=== PATIENT | male | born 1955 | race African-American/Black ===

== ENCOUNTER 2021-01-01 06:53 | Emergency (ER) | payer OTHER ==
[~2021-01-01] VITALS: Ht 175.3 cm; Wt 68.2 kg
[2021-01-01 07:44] VITALS: BP 156/98
[2021-01-01] MEDS ORDERED: PANTOPRAZOLE 40MG DR TABLET PO ONE (08:15)
[2021-01-01] MEDS ORDERED: ONDANSETRON 4MG ODT PO ONE (08:15)
== END 2021-01-01 10:55 | disposition home or self-care (01) ==
LOC: ER 07:17
DX: K21.9 Gastro-esophageal reflux disease without esophagitis (principal); R91.8 Other nonspecific abnormal finding of lung field
CPT/HCPCS: 71045; 71250; 99284; Q0162

== ENCOUNTER 2021-01-20 16:08 | Inpatient (IN) | payer OTHER ==
[~2021-01-20] VITALS: Ht 167.6 cm; Wt 61.9 kg
[2021-01-20] MEDS ORDERED: SODIUM CHLORIDE 0.9% 1,000 ML IV ONE (16:45)
[2021-01-20 16:49] LABS: BASOPHILS % 0.7 % (0.0-2.0); EOSINOPHILS % 2.1 % (0.0-5.0); HEMOGLOBIN. 10.2 g/dL (14.0-18.0); LYMPHOCYTES % 18.1 % (20.0-50.0); MEAN CORPUSCULAR HEMOGLOBIN 27.1 pg (28.0-32.0); MEAN CORPUSCULAR VOLUME 82.3 fL (80.0-94.0); MONOCYTES % 7.7 % (2.0-8.0); NEUTROPHILS % 71.4 % (40.0-76.0); PLATELET 438 x1000/uL (130-400); RED BLOOD CELL COUNT 3.76 mill/uL (4.7-6.1); RED CELL DISTRIBUTION WIDTH 15.3 % (11.6-14.6)
[2021-01-20 17:00] LABS: INR 1.1; PROTHROMBIN TIME 12.1 sec (9.6-11.0)
[2021-01-20 17:02] LABS: CHLORIDE 106 mEq/L (98-107)
[2021-01-20] MEDS ORDERED: PANTOPRAZOLE SODIUM 40 MG/VIAL IV ONE (18:30)
[2021-01-20 19:50] LABS: CLARITY URINE CLEAR (CLEAR); COLOR URINE YELLOW (YELLOW); KETONES URINE NEGATIVE (NEGATIVE); LEUKOCYTE ESTERASE URINE TRACE (NEGATIVE); NITRITE URINE NEGATIVE (NEGATIVE); OCCULT BLOOD URINE 1+ (NEGATIVE); PH URINE 6.5 (4.5-8.0); PROTEIN URINE NEGATIVE (NEGATIVE); SPECIFIC GRAVITY URINE 1.016 (1.005-1.030)
[2021-01-20 21:25] VITALS: BP 150/95
[2021-01-20 22:00] VITALS: BP 150/95
[2021-01-20] MEDS ORDERED: ACETAMINOPHEN 325MG TABLET PO PRN (23:00)
[2021-01-21] VITALS: BP_SYST 132; BP_SYST 134; BP_DIAS 84
[2021-01-21 04:00] VITALS: BP 142/83
[2021-01-21 07:08] LABS: BASOPHILS % 0.8 % (0.0-2.0); HEMOGLOBIN. 10.1 g/dL (14.0-18.0); MEAN CORPUSCULAR HEMOGLOBIN 26.8 pg (28.0-32.0); MEAN CORPUSCULAR VOLUME 81.8 fL (80.0-94.0); MONOCYTES % 9.7 % (2.0-8.0); NEUTROPHILS % 66.5 % (40.0-76.0); PLATELET 421 x1000/uL (130-400); RED BLOOD CELL COUNT 3.78 mill/uL (4.7-6.1); RED CELL DISTRIBUTION WIDTH 14.8 % (11.6-14.6)
[2021-01-21 07:30] LABS: CHLORIDE 104 mEq/L (98-107)
[2021-01-21 08:00] VITALS: BP 139/89
[2021-01-21] MEDS: PANTOPRAZOLE SODIUM 40 MG/VIAL IV SCH (09:45)
[2021-01-21] MEDS ORDERED: DEXAMETHASONE 4MG/ML 1ML VIAL IV SCH ×2 (10:30→11:30)
[2021-01-21 12:00] VITALS: BP 149/90
[2021-01-21 16:00] VITALS: BP 143/90
[2021-01-21] MEDS: DEXAMETHASONE 4MG/ML 1ML VIAL IV SCH (16:30)
[2021-01-21 20:00] VITALS: BP 158/100
[2021-01-21] MEDS ORDERED: ONDANSETRON HCL 4MG/2ML INJ IV PRN (23:30)
[2021-01-21] MEDS ORDERED: MORPHINE SULFATE 2 MG/ML CPJ (NOT FOR IM USE) IV PRN (23:30)
[2021-01-22] VITALS: BP 139/84
[2021-01-22] MEDS: DEXAMETHASONE 4MG/ML 1ML VIAL IV SCH ×5 (00:21→22:19)
[2021-01-22 04:00] VITALS: BP 141/77
[2021-01-22 08:30] VITALS: BP 124/87
[2021-01-22] MEDS: PANTOPRAZOLE SODIUM 40 MG/VIAL IV SCH (08:55)
[2021-01-22] MEDS ORDERED: OMEP20TA2 PO (10:33)
[2021-01-22 11:14] LABS: HEMATOCRIT. 33.6 % (42.0-52.0); MEAN CORPUSCULAR HEMOGLOBIN 26.8 pg (28.0-32.0); MEAN CORPUSCULAR VOLUME 81.8 fL (80.0-94.0); PLATELET 457 x1000/uL (130-400); RED BLOOD CELL COUNT 4.11 mill/uL (4.7-6.1); RED CELL DISTRIBUTION WIDTH 15.3 % (11.6-14.6)
[2021-01-22 11:33] LABS: CHLORIDE 104 mEq/L (98-107)
[2021-01-22 11:41] LABS: PLATELET ESTIMATE SLIGHTLY INCREASED
[2021-01-22 12:00] VITALS: BP 139/91
[2021-01-22] MEDS ORDERED: HYDRALAZINE 20MG/ML VIAL IV PRN (14:00)
[2021-01-22] MEDS ORDERED: BISACODYL 10MG SUPP PR PRN (14:15)
[2021-01-22] MEDS ORDERED: IPRATROPIUM/ALBUTEROL 0.5-3(2.5)MG/3ML NEB HHN PRN (14:15)
[2021-01-22] MEDS ORDERED: CEFTRIAXONE 1 G PREMIX 50 ML IV SCH (14:15)
[2021-01-22] MEDS ORDERED: IOHEXOL-300 100 ML BOTTLE ONE (15:20)
[2021-01-22 16:00] VITALS: BP 138/88
[2021-01-22] MEDS: CEFTRIAXONE 1,000 MG in DEXTROSE 5% WATER 50 ML IV SCH (16:43)
[2021-01-22] MEDS ORDERED: DEXAMETHASONE 4MG/ML 1ML VIAL IV SCH (17:00)
[2021-01-22 17:23] LABS: CREATINE KINASE 75 IU/L (39-308)
[2021-01-22 17:24] LABS: CREATINE KINASE MB FRACTION < 1.0 ng/mL (0.5-3.6)
[2021-01-22 20:00] VITALS: BP 123/70
[2021-01-22] MEDS: LEVETIRACETAM 500MG PREMIX 100 ML IV SCH (22:17)
[2021-01-23] VITALS: BP 129/78
[2021-01-23] MEDS: IPRATROPIUM/ALBUTEROL 0.5-3(2.5)MG/3ML NEB HHN SCH ×3 (01:00→07:44)
[2021-01-23] MEDS: DEXT 5%/0.45% NACL 1000ML 1,000 ML IV SCH ×2 (02:08→15:59)
[2021-01-23 04:00] VITALS: BP 140/77
[2021-01-23] MEDS: DEXAMETHASONE 4MG/ML 1ML VIAL IV SCH ×3 (06:07→17:44)
[2021-01-23 07:21] LABS: CHLORIDE 104 mEq/L (98-107)
[2021-01-23] MEDS ORDERED: ONDANSETRON HCL 4MG/2ML INJ ONE ×2 (07:32→07:33)
[2021-01-23 07:37] LABS: BASOPHILS % 0.2 % (0.0-2.0); HEMATOCRIT. 30.2 % (42.0-52.0); HEMOGLOBIN. 9.9 g/dL (14.0-18.0); LYMPHOCYTES % 7.8 % (20.0-50.0); MEAN CORPUSCULAR HEMOGLOBIN 26.7 pg (28.0-32.0); MEAN CORPUSCULAR VOLUME 81.4 fL (80.0-94.0); MEAN PLATELET VOLUME 7.4 fl (7.4-10.4); MONOCYTES % 3.9 % (2.0-8.0); NEUTROPHILS % 88.1 % (40.0-76.0); PLATELET 430 x1000/uL (130-400); RED BLOOD CELL COUNT 3.71 mill/uL (4.7-6.1); RED CELL DISTRIBUTION WIDTH 14.9 % (11.6-14.6)
[2021-01-23 08:00] VITALS: BP 129/78
[2021-01-23] MEDS: LEVETIRACETAM 500MG PREMIX 100 ML IV SCH (09:30)
[2021-01-23] MEDS: PANTOPRAZOLE SODIUM 40 MG/VIAL IV SCH (09:30)
[2021-01-23] MEDS ORDERED: LIDOCAINE HCL 1% 20ML VIAL (Pyxis) INJ ONE (11:18)
[2021-01-23] MEDS ORDERED: SODIUM BICARBONATE 4% (2.4MEQ) 5ML VIAL IV ONE (11:18)
[2021-01-23 12:00] VITALS: BP 140/85
[2021-01-23] MEDS ORDERED: IPRA3AMP9 NEB (14:49)
[2021-01-23] MEDS ORDERED: DEXA2TAB PO (14:49)
[2021-01-23] MEDS ORDERED: KEPP500 MT (14:49)
[2021-01-23] MEDS: CEFTRIAXONE 1,000 MG in DEXTROSE 5% WATER 50 ML IV SCH (15:58)
[2021-01-23 16:00] VITALS: BP 121/74
[2021-01-23 18:09] VITALS: BP 121/74
[2021-01-23] MEDS ORDERED: FAMOTIDINE 20MG TABLET PO SCH (21:00)
== END 2021-01-23 19:06 | disposition home or self-care (01) | DRG 40 ==
LOC: ER 16:20 → 6WST 18:38 → ENRESERV 20:32
PROVIDERS: ADMIT Internal Medicine; ATTEND Internal Medicine
PROC: 07B13ZX Excision of Right Neck Lymphatic, Percutaneous Approach, Diagnostic (ICD-10-PCS; principal; 2021-01-23)
DX: C79.31 Secondary malignant neoplasm of brain (principal); G93.5 Compression of brain; C34.90 Malignant neoplasm of unspecified part of unspecified bronchus or lung; N39.0 Urinary tract infection, site not specified; R04.2 Hemoptysis; C79.72 Secondary malignant neoplasm of left adrenal gland; G90.8 Other disorders of autonomic nervous system; D64.9 Anemia, unspecified; K21.9 Gastro-esophageal reflux disease without esophagitis; Z79.899 Other long term (current) drug therapy; Z20.828 Contact with and (suspected) exposure to other viral communicable diseases
CPT/HCPCS: 36415; 38505; 71045; 71260; 74176; 76942; 80048; 80053; 81003; 82550; 82553; 82962; 84484; 85025; 86850; 86900; 87426; 88305; 93005; 93306; 93970; 94640; 97162; 99291; C9113; J0696; J1100; J1953; J2405; J3490; J7030; J7060; Q9967

== ENCOUNTER 2021-01-30 04:09 | Inpatient (IN) | payer OTHER ==
[2021-01-30] VITALS (56 sets, daily range): BP systolic 99–162; BP diastolic 23–100
[~2021-01-30] VITALS: Ht 172.7 cm; Wt 57.2 kg
[~2021-01-30 04:09] MED LIST: DEXA2TAB PO; IPRA3AMP9 NEB; KEPP500 MT; OMEP20TA2 PO
[2021-01-30] MEDS ORDERED: LEVETIRACETAM 500MG PREMIX 100 ML IV ONE (04:45)
[2021-01-30 04:56] LABS: BASOPHILS % 0.6 % (0.0-2.0); EOSINOPHILS % 1.6 % (0.0-5.0); HEMOGLOBIN. 10.9 g/dL (14.0-18.0); LYMPHOCYTES % 16.6 % (20.0-50.0); MEAN CORPUSCULAR HEMOGLOBIN 28.1 pg (28.0-32.0); MEAN CORPUSCULAR VOLUME 84.7 fL (80.0-94.0); MEAN PLATELET VOLUME 7.3 fl (7.4-10.4); MONOCYTES % 9.1 % (2.0-8.0); NEUTROPHILS % 72.1 % (40.0-76.0); PLATELET 393 x1000/uL (130-400); RED BLOOD CELL COUNT 3.89 mill/uL (4.7-6.1); RED CELL DISTRIBUTION WIDTH 15.2 % (11.6-14.6)
[2021-01-30] MEDS ORDERED: LABETALOL 5MG/ML SYR 20 MG/4 ML SYRINGE IV ONE (05:00)
[2021-01-30] MEDS ORDERED: DEXAMETHASONE 10 MG/ML VIAL IV ONE (05:00)
[2021-01-30] MEDS ORDERED: IOHEXOL-350 100 ML BOTTLE ONE (05:02)
[2021-01-30 05:03] LABS: CHLORIDE 103 mEq/L (98-107)
[2021-01-30 05:06] LABS: ETHANOL BLOOD < 10 mg/dL
[2021-01-30 05:09] LABS: LDL CHOLESTEROL 118 mg/dL (5-100)
[2021-01-30 05:13] LABS: INR 1.1; PROTHROMBIN TIME 11.4 sec (9.6-11.0)
[2021-01-30 07:11] LABS: CLARITY URINE CLEAR (CLEAR); COLOR URINE YELLOW (YELLOW); KETONES URINE NEGATIVE (NEGATIVE); LEUKOCYTE ESTERASE URINE NEGATIVE (NEGATIVE); NITRITE URINE NEGATIVE (NEGATIVE); OCCULT BLOOD URINE 1+ (NEGATIVE); PROTEIN URINE NEGATIVE (NEGATIVE); SPECIFIC GRAVITY URINE 1.054 (1.005-1.030)
[2021-01-30] MEDS ORDERED: NICARDIPINE 100 MG in SODIUM CHLORIDE 0.9% 60 ML IV PRN ×2 (07:15→11:00)
[2021-01-30] MEDS: DEXT 5%/LACTATED RINGERS 1,000 ML IV SCH ×2 (07:15→23:43)
[2021-01-30 07:29] LABS: *AMPHETAMINES SCREEN URINE NEGATIVE (NEGATIVE); *BARBITURATES SCREEN URINE NEGATIVE (NEGATIVE)
[2021-01-30 07:30] LABS: *BENZODIAZEPINES SCREEN URINE NEGATIVE (NEGATIVE); *COCAINE SCREEN URINE NEGATIVE (NEGATIVE); CANNABINOID URINE SCREEN NEGATIVE (NEGATIVE); METHADONE URINE SCREEN NEGATIVE (NEGATIVE); OPIATES URINE SCREEN PRESUMTIVE POSITIVE (NEGATIVE); PHENCYCLIDINE URINE SCREEN NEGATIVE (NEGATIVE)
[2021-01-30] MEDS: DEXAMETHASONE 4MG/ML 1ML VIAL IV SCH ×3 (12:11→23:43)
[2021-01-30] MEDS ORDERED: BISACODYL 10MG SUPP PR PRN (13:45)
[2021-01-30] MEDS ORDERED: IPRATROPIUM/ALBUTEROL 0.5-3(2.5)MG/3ML NEB HHN PRN (13:45)
[2021-01-30] MEDS ORDERED: MORPHINE SULFATE 2 MG/ML CPJ (NOT FOR IM USE) IV PRN (13:45)
[2021-01-30] MEDS ORDERED: HYDRALAZINE 20MG/ML VIAL IV PRN (13:45)
[2021-01-30] MEDS: FAMOTIDINE 20MG/2ML VIAL IV SCH (15:02)
[2021-01-30] MEDS ORDERED: LEVETIRACETAM 500MG PREMIX 100 ML IV SCH (21:00)
[2021-01-30] MEDS: LEVETIRACETAM 500MG PREMIX 100 ML IV SCH (21:26)
[2021-01-31] VITALS (45 sets, daily range): BP systolic 102–146; BP diastolic 52–94
[2021-01-31 05:06] LABS: BASOPHILS % 0.1 % (0.0-2.0); HEMATOCRIT. 29.5 % (42.0-52.0); HEMOGLOBIN. 9.9 g/dL (14.0-18.0); LYMPHOCYTES % 11.8 % (20.0-50.0); MEAN CORPUSCULAR HEMOGLOBIN 28.8 pg (28.0-32.0); MEAN CORPUSCULAR VOLUME 85.6 fL (80.0-94.0); MEAN PLATELET VOLUME 7.3 fl (7.4-10.4); MONOCYTES % 2.6 % (2.0-8.0); NEUTROPHILS % 85.5 % (40.0-76.0); PLATELET 380 x1000/uL (130-400); RED BLOOD CELL COUNT 3.44 mill/uL (4.7-6.1); RED CELL DISTRIBUTION WIDTH 15.3 % (11.6-14.6)
[2021-01-31] MEDS: DEXAMETHASONE 4MG/ML 1ML VIAL IV SCH ×3 (05:11→19:08)
[2021-01-31 05:35] LABS: CHLORIDE 105 mEq/L (98-107)
[2021-01-31 05:42] LABS: LDL CHOLESTEROL 126 mg/dL (5-100)
[2021-01-31 05:43] LABS: HDL CHOLESTEROL 47 mg/dL (40-59)
[2021-01-31] MEDS: LEVETIRACETAM 500MG PREMIX 100 ML IV SCH ×2 (08:31→22:23)
[2021-01-31] MEDS: FAMOTIDINE 20MG/2ML VIAL IV SCH (08:31)
[2021-01-31] MEDS ORDERED: ACETAMINOPHEN 325MG TABLET PO PRN (15:45)
[2021-01-31] MEDS ORDERED: ACETAMINOPHEN 650MG SUPP PR PRN (15:45)
[2021-01-31] MEDS: DEXT 5%/LACTATED RINGERS 1,000 ML IV SCH (16:56)
[2021-02-01 00:25] VITALS: BP 135/80
[2021-02-01] MEDS: DEXAMETHASONE 4MG/ML 1ML VIAL IV SCH ×3 (02:08→13:58)
[2021-02-01 04:00] VITALS: BP 120/82
[2021-02-01 07:00] LABS: BASOPHILS % 0.1 % (0.0-2.0); HEMATOCRIT. 28.5 % (42.0-52.0); HEMOGLOBIN. 9.6 g/dL (14.0-18.0); LYMPHOCYTES % 7.9 % (20.0-50.0); MEAN CORPUSCULAR HEMOGLOBIN 28.6 pg (28.0-32.0); MEAN CORPUSCULAR VOLUME 84.8 fL (80.0-94.0); MEAN PLATELET VOLUME 7.6 fl (7.4-10.4); MONOCYTES % 2.8 % (2.0-8.0); NEUTROPHILS % 89.2 % (40.0-76.0); PLATELET 375 x1000/uL (130-400); RED BLOOD CELL COUNT 3.36 mill/uL (4.7-6.1); RED CELL DISTRIBUTION WIDTH 15.4 % (11.6-14.6)
[2021-02-01 07:05] LABS: CHLORIDE 102 mEq/L (98-107)
[2021-02-01 08:00] VITALS: BP 133/87
[2021-02-01] MEDS: LEVETIRACETAM 500MG PREMIX 100 ML IV SCH (09:39)
[2021-02-01] MEDS: FAMOTIDINE 20MG/2ML VIAL IV SCH (09:39)
[2021-02-01] MEDS: DEXT 5%/LACTATED RINGERS 1,000 ML IV SCH (09:40)
[2021-02-01 12:00] VITALS: BP 154/96
[2021-02-01] MEDS ORDERED: DEXA2TAB PO (14:01)
[2021-02-01 14:32] VITALS: BP 154/96
== END 2021-02-01 16:24 | disposition home health service (06) | DRG 64 ==
LOC: ER 04:16 → MICUNO 05:17 → EDBEDREQSVC 05:23 → EDBEDREQTM 05:23 → EDBEDREQ 05:23 → CANRESERV 07:38 → ENRESERV 07:38 → 6WST 01-31 17:27
PROVIDERS: ADMIT Internal Medicine; ATTEND Internal Medicine
DX: I61.3 Nontraumatic intracerebral hemorrhage in brain stem (principal); G93.6 Cerebral edema; C79.31 Secondary malignant neoplasm of brain; G81.91 Hemiplegia, unspecified affecting right dominant side; C34.90 Malignant neoplasm of unspecified part of unspecified bronchus or lung; R29.810 Facial weakness; Z20.822 Contact with and (suspected) exposure to COVID-19; D64.9 Anemia, unspecified; R56.9 Unspecified convulsions; K21.9 Gastro-esophageal reflux disease without esophagitis; Z86.73 Personal history of transient ischemic attack (TIA), and cerebral infarction without residual deficits
CPT/HCPCS: 36415; 70496; 70498; 71045; 80048; 80053; 80061; 80305; 80320; 81003; 82962; 83036; 83721; 84484; 85025; 86850; 86900; 87426; 92610; 93005; 93970; 94640; 97162; 97166; 99291; J1100; J1953; J3490; J7050; Q9967; G0480

== ENCOUNTER 2021-03-05 09:08 | Inpatient (IN) | payer OTHER, MEDICAID ==
[~2021-03-05] VITALS: Ht 170.2 cm; Wt 60.8 kg
[2021-03-05] MEDS ORDERED: DEXAMETHASONE 10 MG/ML VIAL IV ONE (09:45)
[2021-03-05 10:01] LABS: BASOPHILS % 0.5 % (0.0-2.0); EOSINOPHILS % 0.5 % (0.0-5.0); HEMATOCRIT. 34.9 % (42.0-52.0); HEMOGLOBIN. 11.2 g/dL (14.0-18.0); LYMPHOCYTES % 13.8 % (20.0-50.0); MEAN CORPUSCULAR HEMOGLOBIN 27.3 pg (28.0-32.0); MEAN CORPUSCULAR VOLUME 84.8 fL (80.0-94.0); MEAN PLATELET VOLUME 7.6 fl (7.4-10.4); MONOCYTES % 5.9 % (2.0-8.0); NEUTROPHILS % 79.3 % (40.0-76.0); PLATELET 188 x1000/uL (130-400); RED BLOOD CELL COUNT 4.11 mill/uL (4.7-6.1); RED CELL DISTRIBUTION WIDTH 19.7 % (11.6-14.6)
[2021-03-05 10:07] LABS: CHLORIDE 103 mEq/L (98-107)
[2021-03-05 10:11] LABS: ETHANOL BLOOD < 10 mg/dL
[2021-03-05 10:12] LABS: INR 1.1; PROTHROMBIN TIME 11.8 sec (9.6-11.0)
[2021-03-05 10:13] LABS: LDL CHOLESTEROL 88 mg/dL (5-100)
[2021-03-05] MEDS ORDERED: POTASSIUM CHLORIDE 20MEQ TABLET SR PO ONE (10:30)
[2021-03-05] MEDS ORDERED: KCL 10MEQ/50ML PREMIX 50 ML IV ONE (12:00)
[2021-03-05 12:50] LABS: BG BASE EXCESS 2.7 mmol/L (-2.0-2.0); BG CARBOXYHEMOGLOBIN 0.8 % (0.5-1.5); BG FRACTION INSPIRED OXYGEN 50; BG HCO3 ACT 25.6 mmol/L (22.0-26.0); BG METHEMOGLOBIN 0.1 % (0.0-1.5); BG OXYHEMOGLOBIN 98.1 % (94.0-97.0); BG PCO2 33.5 mmHg (35.0-45.0); BG PH 7.501 (7.350-7.450); BG PO2 132.2 mmHg (75.0-100.0); BG SAMPLE SITE RIGHT RADIAL; BG TOTAL HEMOGLOBIN 11.7 g/dL (12.0-18.0); BG VENT MODE MASK - SIMPLE
[2021-03-05] MEDS ORDERED: IPRATROPIUM/ALBUTEROL 0.5-3(2.5)MG/3ML NEB NEB PRN (13:45)
[2021-03-05] MEDS ORDERED: MAGNESIUM/ALUMINUM HYDROXIDE/SIMETHICONE 30ML UDC PO PRN (13:45)
[2021-03-05] MEDS ORDERED: PIPERACILLIN/TAZOBACTAM 3.375 G in DEXT 5% WATER 100 ML IV SCH (13:45)
[2021-03-05] MEDS ORDERED: LORAZEPAM 2MG/ML CPJ IV PRN (13:45)
[2021-03-05] MEDS ORDERED: GUAIFENESIN 200MG/10ML SUGAR FREE UDC PO PRN (13:45)
[2021-03-05] MEDS ORDERED: DOCUSATE SODIUM 100MG CAPSULE PO PRN (13:45)
[2021-03-05] MEDS ORDERED: DIPHENHYDRAMINE 50MG/ML VIAL IV PRN (13:45)
[2021-03-05] MEDS ORDERED: NA PHOS,M-B/NA PHOS,DI-BA ENEMA 118ML PR PRN (13:45)
[2021-03-05] MEDS ORDERED: HYDROCODONE/ACETAMINOPHEN 5/325MG TABLET PO PRN (13:45)
[2021-03-05] MEDS ORDERED: MORPHINE SULFATE 2 MG/ML CPJ (NOT FOR IM USE) IV PRN (13:45)
[2021-03-05] MEDS ORDERED: ONDANSETRON HCL 4MG/2ML INJ IV PRN (13:45)
[2021-03-05] MEDS ORDERED: ACETAMINOPHEN 650MG/20.3ML UDC GT PRN (13:45)
[2021-03-05] MEDS ORDERED: LEVETIRACETAM 500MG PREMIX 100 ML IV SCH (13:51)
[2021-03-05] MEDS ORDERED: PIPERACILLIN/TAZ 3.375G PREMIX 50 ML IV SCH (13:54)
[2021-03-05] MEDS: FAMOTIDINE 20MG/2ML VIAL IV SCH (14:18)
[2021-03-05] MEDS: CLONIDINE 0.1MG TABLET PO PRN (14:19)
[2021-03-05 15:46] LABS: CREATINE KINASE MB FRACTION 1.7 ng/mL (0.5-3.6)
[2021-03-05] MEDS ORDERED: POTASSIUM CHLORIDE 20MEQ TABLET SR PO NR (16:30)
[2021-03-05 16:57] LABS: CLARITY URINE CLEAR (CLEAR); COLOR URINE YELLOW (YELLOW); KETONES URINE NEGATIVE (NEGATIVE); LEUKOCYTE ESTERASE URINE 1+ (NEGATIVE); NITRITE URINE NEGATIVE (NEGATIVE); OCCULT BLOOD URINE 1+ (NEGATIVE); PROTEIN URINE NEGATIVE (NEGATIVE); SPECIFIC GRAVITY URINE 1.016 (1.005-1.030)
[2021-03-05 17:10] LABS: *BARBITURATES SCREEN URINE NEGATIVE (NEGATIVE)
[2021-03-05 17:11] LABS: *AMPHETAMINES SCREEN URINE NEGATIVE (NEGATIVE); *BENZODIAZEPINES SCREEN URINE NEGATIVE (NEGATIVE); *COCAINE SCREEN URINE NEGATIVE (NEGATIVE); METHADONE URINE SCREEN NEGATIVE (NEGATIVE); OPIATES URINE SCREEN PRESUMTIVE POSITIVE (NEGATIVE); PHENCYCLIDINE URINE SCREEN NEGATIVE (NEGATIVE)
[2021-03-05 17:12] LABS: CANNABINOID URINE SCREEN NEGATIVE (NEGATIVE)
[2021-03-05] MEDS: DEXAMETHASONE 4MG/ML 1ML VIAL IV SCH (17:48)
[2021-03-05 20:17] VITALS: BP 166/99
[2021-03-05] MEDS: METOPROLOL TARTRATE 25MG TABLET PO SCH (22:17)
[2021-03-05] MEDS: PIPERACILLIN/TAZOBACTAM 3.375 G in DEXT 5% WATER 100 ML IV SCH (22:17)
[2021-03-05] MEDS: LEVETIRACETAM 500MG PREMIX 100 ML IV SCH (22:17)
[2021-03-05 23:58] LABS: CREATINE KINASE MB FRACTION 1.2 ng/mL (0.5-3.6)
[2021-03-06] VITALS: BP 159/106
[2021-03-06 00:08] VITALS: BP 162/99
[2021-03-06] MEDS: DEXAMETHASONE 4MG/ML 1ML VIAL IV SCH ×4 (00:25→17:47)
[2021-03-06] MEDS: PIPERACILLIN/TAZOBACTAM 3.375 G in DEXT 5% WATER 100 ML IV SCH ×4 (03:15→21:17)
[2021-03-06 04:00] VITALS: BP 165/99
[2021-03-06] MEDS: CLONIDINE 0.1MG TABLET PO PRN (05:05)
[2021-03-06 06:08] LABS: CHLORIDE 99 mEq/L (98-107)
[2021-03-06 06:18] LABS: BASOPHILS % 0.2 % (0.0-2.0); HEMATOCRIT. 33.3 % (42.0-52.0); MEAN CORPUSCULAR HEMOGLOBIN 27.7 pg (28.0-32.0); MEAN CORPUSCULAR VOLUME 84.1 fL (80.0-94.0); MEAN PLATELET VOLUME 7.9 fl (7.4-10.4); MONOCYTES % 2.9 % (2.0-8.0); NEUTROPHILS % 88.9 % (40.0-76.0); PLATELET 197 x1000/uL (130-400); RED BLOOD CELL COUNT 3.96 mill/uL (4.7-6.1); RED CELL DISTRIBUTION WIDTH 20.1 % (11.6-14.6)
[2021-03-06 06:25] LABS: LDL CHOLESTEROL 106 mg/dL (5-100)
[2021-03-06 06:27] LABS: HDL CHOLESTEROL 96 mg/dL (40-59)
[2021-03-06 08:00] VITALS: BP 147/94
[2021-03-06] MEDS: LEVETIRACETAM 500MG PREMIX 100 ML IV SCH ×2 (09:40→21:17)
[2021-03-06] MEDS: METOPROLOL TARTRATE 25MG TABLET PO SCH ×2 (09:40→21:17)
[2021-03-06] MEDS: FAMOTIDINE 20MG/2ML VIAL IV SCH (09:40)
[2021-03-06 12:00] VITALS: BP 115/76
[2021-03-06 14:07] LABS: BG BASE EXCESS -0.5 mmol/L (-2.0-2.0); BG CARBOXYHEMOGLOBIN 1.2 % (0.5-1.5); BG DEOXYHEMOGLOBIN 2.4 % (0.0-5.0); BG FRACTION INSPIRED OXYGEN 21; BG HCO3 ACT 21.6 mmol/L (22.0-26.0); BG OXYGEN SATURATION 97.6 % (92.0-98.5); BG OXYHEMOGLOBIN 96.4 % (94.0-97.0); BG PCO2 27.5 mmHg (35.0-45.0); BG PH 7.512 (7.350-7.450); BG PO2 93.6 mmHg (75.0-100.0); BG SAMPLE SITE RIGHT RADIAL; BG TOTAL HEMOGLOBIN 11.5 g/dL (12.0-18.0); BG VENT MODE ROOM AIR
[2021-03-06 20:00] VITALS: BP 126/96
[2021-03-06] MEDS: ATORVASTATIN CALCIUM 10MG TABLET PO SCH (21:17)
[2021-03-07] VITALS: BP 103/79
[2021-03-07] MEDS: DEXAMETHASONE 4MG/ML 1ML VIAL IV SCH ×5 (00:38→23:10)
[2021-03-07] MEDS: PIPERACILLIN/TAZOBACTAM 3.375 G in DEXT 5% WATER 100 ML IV SCH ×4 (03:13→21:06)
[2021-03-07 04:00] VITALS: BP 123/87
[2021-03-07 07:01] LABS: BASOPHILS % 0.1 % (0.0-2.0); EOSINOPHILS % 0.1 % (0.0-5.0); HEMATOCRIT. 33.7 % (42.0-52.0); HEMOGLOBIN. 11.2 g/dL (14.0-18.0); LYMPHOCYTES % 13.2 % (20.0-50.0); MEAN CORPUSCULAR HEMOGLOBIN 28.1 pg (28.0-32.0); MEAN CORPUSCULAR VOLUME 84.2 fL (80.0-94.0); MEAN PLATELET VOLUME 7.9 fl (7.4-10.4); NEUTROPHILS % 80.6 % (40.0-76.0); PLATELET 214 x1000/uL (130-400); RED CELL DISTRIBUTION WIDTH 19.6 % (11.6-14.6)
[2021-03-07 07:55] LABS: CHLORIDE 101 mEq/L (98-107)
[2021-03-07 08:00] VITALS: BP 123/84
[2021-03-07] MEDS: FAMOTIDINE 20MG/2ML VIAL IV SCH (09:30)
[2021-03-07] MEDS: LEVETIRACETAM 500MG PREMIX 100 ML IV SCH ×2 (09:31→20:26)
[2021-03-07] MEDS: METOPROLOL TARTRATE 25MG TABLET PO SCH ×2 (10:32→21:12)
[2021-03-07 12:00] VITALS: BP 110/74
[2021-03-07 16:00] VITALS: BP 124/83
[2021-03-07 20:00] VITALS: BP 140/90
[2021-03-07] MEDS: ATORVASTATIN CALCIUM 10MG TABLET PO SCH (21:12)
[2021-03-08] VITALS: BP 135/88
[2021-03-08] MEDS: PIPERACILLIN/TAZOBACTAM 3.375 G in DEXT 5% WATER 100 ML IV SCH ×3 (02:56→15:40)
[2021-03-08 04:00] VITALS: BP 155/107
[2021-03-08] MEDS: CLONIDINE 0.1MG TABLET PO PRN (04:29)
[2021-03-08] MEDS: DEXAMETHASONE 4MG/ML 1ML VIAL IV SCH ×3 (05:08→17:24)
[2021-03-08 08:00] VITALS: BP 151/97
[2021-03-08] MEDS: METOPROLOL TARTRATE 25MG TABLET PO SCH (08:33)
[2021-03-08] MEDS: FAMOTIDINE 20MG/2ML VIAL IV SCH (08:33)
[2021-03-08] MEDS: LEVETIRACETAM 500MG PREMIX 100 ML IV SCH (08:34)
[2021-03-08 12:00] VITALS: BP 131/87
[2021-03-08] MEDS ORDERED: KEPP500 MT (12:44)
[2021-03-08] MEDS ORDERED: METO25TA6 MT (12:44)
[2021-03-08] MEDS ORDERED: DEXA4TAB PO (12:44)
[2021-03-08 16:00] VITALS: BP 143/75
[2021-03-08 16:14] VITALS: BP 135/92
== END 2021-03-08 18:20 | disposition home or self-care (01) | DRG 180 ==
LOC: ER 09:08 → EDBEDREQTM 10:27 → EDBEDREQ 10:27 → 5WST 11:49 → EDBEDREQ 11:53 → EDBEDREQTM 11:53 → ENRESERV 19:17
PROVIDERS: ADMIT Internal Medicine; ATTEND Internal Medicine
DX: C34.90 Malignant neoplasm of unspecified part of unspecified bronchus or lung (principal); I21.4 Non-ST elevation (NSTEMI) myocardial infarction; J69.0 Pneumonitis due to inhalation of food and vomit; C79.31 Secondary malignant neoplasm of brain; E87.3 Alkalosis; G91.9 Hydrocephalus, unspecified; G93.40 Encephalopathy, unspecified; E87.1 Hypo-osmolality and hyponatremia; I50.32 Chronic diastolic (congestive) heart failure; D64.9 Anemia, unspecified; E78.5 Hyperlipidemia, unspecified; E87.6 Hypokalemia; R13.10 Dysphagia, unspecified; K21.9 Gastro-esophageal reflux disease without esophagitis; E88.09 Other disorders of plasma-protein metabolism, not elsewhere classified; G90.8 Other disorders of autonomic nervous system; Z92.21 Personal history of antineoplastic chemotherapy; Z92.3 Personal history of irradiation; Z86.73 Personal history of transient ischemic attack (TIA), and cerebral infarction without residual deficits; Z87.891 Personal history of nicotine dependence; Z79.899 Other long term (current) drug therapy
CPT/HCPCS: 36415; 36600; 71045; 80048; 80053; 80061; 80305; 80320; 81003; 82140; 82375; 82550; 82553; 82805; 82962; 83721; 83735; 84439; 84443; 84484; 85025; 86850; 86900; 92610; 93005; 97162; 99291; J1100; J1953; J2270; J2405; J2543; J3480; J3490; J7040; J7060; G0480